=== PATIENT | male | born 1960 | race Caucasian/White ===

== ENCOUNTER 2019-09-26 10:59 | Day surgery (SDC) | payer OTHER ==
[~2019-09-26] VITALS: Ht 180.3 cm; Wt 120.2 kg
[~2019-09-26 10:59] MED LIST: AMLO10CA33 PO; DIPH25CA66 PO; GABA300C10 PO; OMEP20TA PO; OXYMTAB2 PO; SERT100T PO; SIMV-8 PO; SITA50TA25 PO; TAM04C PO; TRAZ150T84 PO; VORT10TA PO
[2019-09-26] MEDS ORDERED: ANGIOMAX 250 MG VIAL IV ONE (11:57)
[2019-09-26] MEDS ORDERED: fentaNYL CITRATE 100 MCG/2 ML VL ONE (11:57)
[2019-09-26] MEDS ORDERED: MIDAZOLAM HCL 1MG/1ML-2 ML VIAL ONE (11:57)
[2019-09-26] MEDS ORDERED: SODIUM CHL 0.9% 0 ML ONE (11:58)
[2019-09-26] MEDS ORDERED: LIDOCAINE 2%HCL (LOCAL ANESTH.) INJ 20ML MDV ONE (11:58)
[2019-09-26] MEDS ORDERED: IODIXANOL 320MG/ML 100ML BTL IV ONE (11:58)
[2019-09-26] MEDS ORDERED: diphenhdrAMINE HCL 50 MG/1 ML VL ONE (12:24)
[2019-09-26] MEDS ORDERED: methylPREDNISolone SOD SUCC 125 MG/2 ML VL ONE (12:25)
[2019-09-26] MEDS ORDERED: ACETAMINOPHEN 500 MG TAB PO PRN (13:15)
[2019-09-26] MEDS ORDERED: HYDROcodone-ACET 5/325MG TAB PO PRN (13:15)
[2019-09-26] MEDS ORDERED: ONDANSETRON HCL 4 MG/2 ML VIAL IV PRN (13:15)
== END 2019-09-26 13:21 | disposition home or self-care (01) ==
LOC: CATH 10:59
PROVIDERS: ATTEND Internal Medicine
DX: I73.9 Peripheral vascular disease, unspecified (principal); I70.201 Unspecified atherosclerosis of native arteries of extremities, right leg; I10 Essential (primary) hypertension; E78.5 Hyperlipidemia, unspecified; E11.9 Type 2 diabetes mellitus without complications; Z11.59 Encounter for screening for other viral diseases; Z91.013 Allergy to seafood; Z98.890 Other specified postprocedural states
CPT/HCPCS: 36246; 75716; C1760; C1769; C1894; J1644; J2250; J2930; J3010; J7030; Q9967; U0003; 36247; 37224; 99152